=== PATIENT | female | born 1965 | race Caucasian/White ===

== ENCOUNTER 2025-05-26 07:51 | Emergency (ER) | payer OTHER, SELFPAY ==
[2025-05-26 07:52] VITALS: BP 145/69; PULSE 78; RESP 20; TEMP 36.4; O2SAT 96
[2025-05-26 07:57] VITALS: BMI 38.7
--- NOTE | 2025-05-26 08:35 | EX.ED.DYSGE1 ---
HPI History of Present Illness Chief Complaint: Nosebleed Informant: patient Onset/Context/Timing Onset: Today Context: Sudden Onset Timing: Continuous Quality: Anterior and posterior bleeding Location: Right nares Worsened by: Nothing Relieved by: Nothing Narrative Narrative: Patient presents with epistaxis that began this morning. Patient states it woke her up out of her sleep. Patient states she noted some bleeding out of the front of her nose. Patient states she also felt bleeding going up the back of her throat. Patient states it is mainly out of the right side. Patient states nothing makes it worse and nothing makes it better. Patient states she does have a humidifier at home. Patient denies any trauma or injury. Patient states she only takes 1 baby aspirin per day. Patient is not on any anticoagulants. [facility] Medical History (Updated 05/26/25 @ 10:[address] Terry Simon DO) Back pain Fibromyalgia Medical History unable to obtain Home Medications ?Medication ?Instructions ?Recorded ?Last Taken ?Type aluminum hydrox-magnesium carb 160 2 tab PO BID PRN dyspepsia 05/26/25 Unknown History mg-105 mg chewable tablet (Gaviscon Extra Strength) aspirin 81 mg capsule 81 mg PO DAILY heart 05/26/25 05/25/25 History gabapentin 300 mg capsule 300 mg PO QHS 05/26/25 Unknown History hydroxyzine HCl 10 mg tablet 10 mg PO QHS PRN itching 05/26/25 05/25/25 History omeprazole 40 mg capsule,delayed 40 mg PO DAILY 05/26/25 05/25/25 History release rosuvastatin 20 mg tablet 20 mg PO QHS cholesterol 05/26/25 05/25/25 History tizanidine 4 mg tablet 4 mg PO BID PRN restless leg 05/26/25 Unknown History tramadol 50 mg tablet 50 mg PO PRN pain 05/26/25 Unknown History Allergy/AdvReac Type Severity Reaction Status Date / Time adhesive tape Allergy Mild Rash Verified 05/26/25 07:53 Surgical History (Updated 05/26/25 @ 09:[address] Terry Simon DO) Hx of cholecystectomy Hx of hysterectomy Social History Smoking Status: Never smoker ROS ROS ED Constitutional Constitutional ED: Denies chills or fever(s) Eyes Eyes: Denies blurry vision or change in vision ENT ENT ED: Denies rhinorrhea or sore throat Cardiovascular Cardiovascular: Denies chest pain or palpitations Respiratory/Chest Respiratory/Chest: Denies cough or dyspnea Gastrointestinal Gastrointestinal: Denies nausea or vomiting Genitourinary Genitourinary ED: Denies dysuria or hematuria Musculoskeletal Musculoskeletal: Reports back pain; Denies neck pain Integumentary Denies abscess or rash Neurologic Neurologic: Denies headache(s) or weakness Allergic/Immunologic Allergic/Immunologic ED: Denies mouth swelling or urticaria EXAM Physical Exam Const Vital Signs: 05/26/25 07:52 05/26/25 09:51 Temperature 97.6 F L Temperature Source Temporal Pulse Rate 78 68 Respiratory Rate 20 H 17 Blood Pressure 145/69 H 122/78 H Blood Pressure Mean 94 92 Pulse Ox 96 95 Oxygen Delivery Method Room Air Positive well nourished and well developed General Appearance ED: well developed and NAD HEENT Reports moist mucous membranes HEENT Narrative: There is some dried blood in the right nares. There is minimal bleeding from the right anterior nasal septum. There is no septal deviation or septal hematoma. There is no bleeding in the posterior pharynx. Neck supple and no JVD Neuro oriented x3, CN's II-XII intact bilaterally and no sensory deficits noted Sensorium / Orientation: alert Motor Exam: strength 5/5 throughout Psych mental status grossly normal MDM MDM MDM Narrative Medical decision making narrative: Harriet mixture was applied to the right nares using cotton balls. Bleeding stopped after this. Bacitracin ointment was applied to the bilateral nares. Treatment and Re-Evaluation :: Patient started have some bleeding again. Cottonball soaked with Harriet mixture was again placed in the right nares. Bleeding seemed to stop. I did attempt to pack the right nares with Merocel sponge but she was unable to tolerate that. I also attempted to place a rapid Rhino in the right nares. Patient was unable to tolerate that as well. Patient was observed after this. Patient had no further bleeding. Patient was instructed to continue using Neosporin or bacitracin ointment to the nares. Patient was instructed to follow-up with his primary care physician in 5 to 7 days. Patient was instructed to return if worse in any way. Patient understood and was agreeable with plan. All questions were answered. Discharge Plan Triage Chief Complaint: Nosebleed ED Provider: Terry Simon Dx/Rx/DC Orders Clinical Impression: Acute anterior epistaxis, Fibromyalgia Instructions: ED Epistaxis (Adult) Prescriptions: No Action hydroxyzine HCl 10 mg tablet 10 mg PO QHS PRN (Reason: itching) aspirin 81 mg capsule 81 mg PO DAILY rosuvastatin 20 mg tablet 20 mg PO QHS gabapentin 300 mg capsule 300 mg PO QHS Patient Comments: pt only takes as needed tizanidine 4 mg tablet 4 mg PO BID PRN (Reason: restless leg) omeprazole 40 mg capsule,delayed release(DR/EC) 40 mg PO DAILY tramadol 50 mg tablet 50 mg PO PRN Gaviscon Extra Strength 160-105 mg tablet,chewable 2 tab PO BID PRN (Reason: dyspepsia) Primary Care Provider: SUNIL POWELL MD Referrals: SUNIL POWELL MD [Other] - 3-5 Days Print Language: Lithuanian Disposition Disposition: Home, Self Care
[2025-05-26] MEDS: Mixture 30 ML Bottle TOPICAL (09:17)
[2025-05-26 09:51] VITALS: BP 122/78; PULSE 68; RESP 17; O2SAT 95
[2025-05-26 10:53] VITALS: BP 140/96; PULSE 81; RESP 16; TEMP 36.6; O2SAT 98
== END 2025-05-26 11:08 | disposition home or self-care (01) ==
PROVIDERS: Emergency Provider Emergency Medicine; Visit Provider Emergency Medicine
DX: R04.0 Epistaxis (principal); M79.7 Fibromyalgia
CPT/HCPCS: 30901; 99282